=== PATIENT | male | born 1960 | race Caucasian/White ===

== ENCOUNTER 2019-03-02 12:16 | Outpatient (CLI) | payer BC, OTHER ==
--- NOTE | 2019-03-02 13:00 | RAD ---
XR Toe(s) Lt Min 2 View: 03/02/2019 12:45 PM CLINICAL INDICATION: Crush injury COMPARISON: None. FINDINGS: Fracture:Comminuted fracture of the distal phalanx of the great toe. Arthropathy:None of significance. Incidental findings:None of significance. IMPRESSION: Comminuted distal phalangeal fracture of the great toe.
== END 2019-03-02 12:17 | disposition home or self-care (01) ==
LOC: NAV RAD 12:16
PROVIDERS: ATTEND Nurse Practitioner Adult Health
DX: S99.922A Unspecified injury of left foot, initial encounter (principal); S92.422A Displaced fracture of distal phalanx of left great toe, initial encounter for closed fracture

== ENCOUNTER 2021-05-08 09:52 | Emergency (ER) | payer BC ==
[2021-05-09 09:51] LABS: SARS-CoV-2 PCR by NAA Not Detected (NotDetected)
== END 2021-05-08 10:23 | disposition home or self-care (01) ==
LOC: NAV ERS 09:52
DX: B34.9 Viral infection, unspecified (principal); Z20.822 Contact with and (suspected) exposure to COVID-19; M10.9 Gout, unspecified; I10 Essential (primary) hypertension; E78.00 Pure hypercholesterolemia, unspecified; F17.210 Nicotine dependence, cigarettes, uncomplicated; Z79.899 Other long term (current) drug therapy
CPT/HCPCS: 99284; U0003; U0005